=== PATIENT | male | born 1975 | race Caucasian/White ===

== ENCOUNTER 2024-10-16 06:39 | Day surgery (SDC) | payer OTHER ==
[~2024-10-16] VITALS: Ht 167.6 cm; Wt 103.0 kg
[~2024-10-16 06:39] MED LIST: AMOCLA875 PO; Percocet 5-3251 EACH PO; Pseudoephedrine30 MG PO
[2024-10-16] MEDS ORDERED: CeFAZolin Sodium 2,000 MG VIAL ONE (06:43)
[2024-10-16] MEDS ORDERED: Tranexamic Acid 100 ML IV ONE (06:46)
[2024-10-16] MEDS ORDERED: IBUP200 PO (07:00)
[2024-10-16] MEDS ORDERED: FentaNYL Citrate 50 MCG/ML 2 ML Injection ONE ×2 (07:37→07:50)
[2024-10-16] MEDS ORDERED: Bupivacaine 0.5% W/EPI 1:200000 SDV 30 ML Vial ONE (07:37)
[2024-10-16] MEDS ORDERED: Midazolam HCl 1MG / ML 2ML Vial ONE (07:37)
--- NOTE | 2024-10-16 07:49 | NUR ---
10/16/24 0749 Sander June TIME OUT AT 0738. ANESTHESIA MO PERFORMS NERVE BLOCK AND PT TOLERATED WELL. START TIME AT 0742, END TIME AT 0744.
[2024-10-16] MEDS ORDERED: Dexamethasone Sod Phos 10 MG/ML 1ML VIAL ONE ×2 (07:58→09:20)
[2024-10-16] MEDS ORDERED: Ketorolac Tromethamine 30mg Vial ONE ×2 (07:58→09:20)
[2024-10-16] MEDS ORDERED: Ondansetron HCl 2 MG / ML 2ML Vial ONE ×2 (07:58→09:20)
--- NOTE | 2024-10-16 08:24 | NUR ---
10/16/24 0824 Briseida Ramachandran 1GM STARTED AT 0800 BY MO CLAIM MANAGER
[2024-10-16] MEDS ORDERED: Vancomycin HCl 1000 MG ADDvantage ONE (08:26)
--- NOTE | 2024-10-16 09:36 | NUR ---
10/16/24 0936 JANAE BATES PT BROUGHT IN ON 15L O2 VIA NON-REBREATHER. SAT 100%. SWITCHED TO 10L PT QUICKLY DROPPED AND HAD TO PLACE BACK ON 15L. RAISED HEAD OF BED. ENCOURAGED DEEP BREATHING- CURRENTLY BACK UP TO 99%. PT SNORING
--- NOTE | 2024-10-16 10:25 | NUR ---
10/16/24 1025 JANAE BATES PT DISCRIBES PAIN OF 3/10- THROBBING AT TIMES. PT DECLINES PO PAIN MEDICATION.
[2024-10-16 10:26] VITALS: BP 130/73
== END 2024-10-16 10:39 | disposition home or self-care (01) ==
LOC: ORSCSDS 06:39
PROVIDERS: Orthopaedic Surgery Sports Medicine
PROC: 0MRN4KZ Replacement of Right Knee Bursa and Ligament with Nonautologous Tissue Substitute, Percutaneous Endoscopic Approach (ICD-10-PCS; principal; 2024-10-16 08:00)
DX: S83.511A Sprain of anterior cruciate ligament of right knee, initial encounter (principal); S83.211A Bucket-handle tear of medial meniscus, current injury, right knee, initial encounter; M23.41 Loose body in knee, right knee; X50.1XXA Overexertion from prolonged static or awkward postures, initial encounter
CPT/HCPCS: C1713; C1762; C1889; J0165; J0690; J1100; J1885; J2250; J2405; J2704; J3010; J3373; J7120